=== PATIENT | female | born 1955 | race Caucasian/White ===

== ENCOUNTER 2021-05-11 20:54 | Inpatient (IN) ==
[2021-05-11 22:06] LABS: Hematocrit 39 % (35-47); Hemoglobin 13.5 g/dL (12.0-16.0); Mean Corpuscular HGB Conc 34 g/dL (31-36); Mean Corpuscular Hemoglobin 32 pg (27-31); Mean Corpuscular Volume 92 fL (80-97); Red Blood Count 4.27 10^6 /uL (3.70-4.87); Red Cell Distribution Width 14 % (10-15); White Blood Count 20.2 10^3/uL (3.5-10.8)
[2021-05-11 22:14] LABS: ALT 29 U/L (7-52); AST 25 U/L (13-39); Albumin 4.3 g/dL (3.2-5.2); Albumin/Globulin Ratio 1.2 (1-3); Alkaline Phosphatase 164 U/L (35-149); Anion Gap 10 mmol/L (2-11); Blood Urea Nitrogen 15 mg/dL (6-24); CO2 Carbon Dioxide 25 mmol/L (22-32); Calcium 9.3 mg/dL (8.6-10.3); Chloride 105 mmol/L (101-111); Globulin 3.7 g/dL (2-4); Glucose 137 mg/dL (70-100); Magnesium 2.1 mg/dL (1.9-2.7); Potassium 3.4 mmol/L (3.5-5.0); Sodium 140 mmol/L (135-145); eGFR CKD-EPI 76.9 (>60)
[2021-05-11 22:15] LABS: Urine Appearance Clear; Urine Blood Negative (Negative); Urine Color Yellow; Urine Ketones Negative (Negative); Urine Nitrite Negative (Negative); Urine Protein 1+(30 mg/dL) (Negative); Urine Urobilinogen Negative (Negative); Urine pH 5 (5-9)
[2021-05-11 22:16] LABS: Urine Bilirubin Negative (Negative); Urine Glucose Negative (Negative)
[2021-05-11 22:17] LABS: Urine Bacteria 1+ (Absent); Urine Red Blood Cell Absent (Absent); Urine Squamous Epithelial Cell Present (Absent); Urine White Blood Cell Trace(0-5/hpf) (Absent)
[2021-05-11 22:22] LABS: Rapid COVID-19 Molecular Undetected (Undetected)
[2021-05-11 22:32] LABS: Troponin I 0.04 ng/mL (<0.03)
[2021-05-11 22:46] LABS: ABS Basophils 0.2 10^3/ul (0-0.2); ABS Eosinophils 0.8 10^3/ul (0-0.6); ABS Lymphocytes 5.1 10^3/ul (1.0-4.8); ABS Monocytes 1.2 10^3/ul (0-0.8); Alcohol, S < 13 mg/dL (<13); Eosinophil % 3.8 %; Lymphocyte % 25.1 %; Mean Platelet Volume 9.1 fL (7.4-10.4); Platelet Count 374 10^3/uL (150-450)
[2021-05-11 23:08] LABS: C Reactive Protein 18.62 mg/L (<8.01)
[2021-05-12 06:21] LABS: ABS Basophils 0.1 10^3/ul (0-0.2); ABS Eosinophils 0.8 10^3/ul (0-0.6); ABS Lymphocytes 4.4 10^3/ul (1.0-4.8); ABS Monocytes 1.1 10^3/ul (0-0.8); ABS Neutrophils 10.3 10^3/ul (1.5-7.7); Hematocrit 40 % (35-47); Hemoglobin 13.8 g/dL (12.0-16.0); Lymphocyte % 26.5 %; Mean Corpuscular HGB Conc 35 g/dL (31-36); Mean Corpuscular Hemoglobin 32 pg (27-31); Mean Corpuscular Volume 91 fL (80-97); Mean Platelet Volume 8.3 fL (7.4-10.4); Platelet Count 390 10^3/uL (150-450); Red Blood Count 4.34 10^6 /uL (3.70-4.87); Red Cell Distribution Width 15 % (10-15); White Blood Count 16.7 10^3/uL (3.5-10.8)
[2021-05-12 06:37] LABS: Anion Gap 8 mmol/L (2-11); Blood Urea Nitrogen 13 mg/dL (6-24); CO2 Carbon Dioxide 27 mmol/L (22-32); Calcium 9.3 mg/dL (8.6-10.3); Chloride 105 mmol/L (101-111); Glucose 107 mg/dL (70-100); Potassium 3.4 mmol/L (3.5-5.0); Sodium 140 mmol/L (135-145); eGFR CKD-EPI 97.8 (>60)
[2021-05-12 06:48] LABS: Troponin I 0.08 ng/mL (<0.03)
[2021-05-12] MEDS ORDERED: Potassium Chloride LIQUID 20 MEQ/15 ML LIQUID PO ONE (06:58)
[2021-05-12 10:43] LABS: Uric Acid 2.9 mg/dL (2.3-6.6)
[2021-05-12 10:44] LABS: Troponin I 0.07 ng/mL (<0.03)
[2021-05-12] MEDS ORDERED: Iodixanol (CONTRAST) 320 MG/ML 100 ML SDV IV ONE (10:44)
[2021-05-12] MEDS: Enoxaparin 40 MG/0.4 ML SYR SUBCUT SCH (11:55)
[2021-05-13 05:50] LABS: ABS Basophils 0.1 10^3/ul (0-0.2); ABS Eosinophils 1.1 10^3/ul (0-0.6); ABS Lymphocytes 4.1 10^3/ul (1.0-4.8); ABS Monocytes 0.9 10^3/ul (0-0.8); ABS Neutrophils 7.4 10^3/ul (1.5-7.7); Eosinophil % 7.8 %; Hematocrit 39 % (35-47); Hemoglobin 13.4 g/dL (12.0-16.0); Lymphocyte % 30.6 %; Mean Corpuscular HGB Conc 35 g/dL (31-36); Mean Corpuscular Hemoglobin 32 pg (27-31); Mean Corpuscular Volume 93 fL (80-97); Platelet Count 377 10^3/uL (150-450); Red Blood Count 4.16 10^6 /uL (3.70-4.87); Red Cell Distribution Width 15 % (10-15); White Blood Count 13.5 10^3/uL (3.5-10.8)
[2021-05-13 06:05] LABS: Calcium 9.2 mg/dL (8.6-10.3); Potassium 3.9 mmol/L (3.5-5.0); eGFR CKD-EPI 97.1 (>60)
[2021-05-13] MEDS: Enoxaparin 40 MG/0.4 ML SYR SUBCUT SCH (09:14)
[2021-05-13] MEDS ORDERED: Perflutren Lipid Microsphere 3 ML VIAL ONE (12:49)
[2021-05-14] MEDS: Enoxaparin 40 MG/0.4 ML SYR SUBCUT SCH (08:48)
[2021-05-15 06:53] LABS: ABS Basophils 0.1 10^3/ul (0-0.2); ABS Eosinophils 0.9 10^3/ul (0-0.6); ABS Lymphocytes 4.1 10^3/ul (1.0-4.8); ABS Monocytes 0.8 10^3/ul (0-0.8); ABS Neutrophils 9.3 10^3/ul (1.5-7.7); Hematocrit 40 % (35-47); Hemoglobin 13.8 g/dL (12.0-16.0); Mean Corpuscular HGB Conc 34 g/dL (31-36); Mean Corpuscular Hemoglobin 32 pg (27-31); Mean Corpuscular Volume 93 fL (80-97); Mean Platelet Volume 8.3 fL (7.4-10.4); Platelet Count 397 10^3/uL (150-450); Red Blood Count 4.35 10^6 /uL (3.70-4.87); Red Cell Distribution Width 15 % (10-15); White Blood Count 15.3 10^3/uL (3.5-10.8)
[2021-05-15 07:10] LABS: Calcium 9.7 mg/dL (8.6-10.3); Magnesium 2.1 mg/dL (1.9-2.7); Potassium 4.1 mmol/L (3.5-5.0); eGFR CKD-EPI 100.4 (>60)
[2021-05-15] MEDS: Enoxaparin 40 MG/0.4 ML SYR SUBCUT SCH (08:42)
[2021-05-16] MEDS: Enoxaparin 40 MG/0.4 ML SYR SUBCUT SCH (09:20)
[2021-05-17] MEDS: Enoxaparin 40 MG/0.4 ML SYR SUBCUT SCH (09:15)
[2021-05-17 15:58] VITALS: BP 158/86
== END 2021-05-17 15:33 | disposition swing bed (61) | DRG 342 ==
LOC: ED 20:54 → EDHOLD 05-12 01:57 → INTOOBSV 05-12 01:57 → SUATTDRO 05-12 01:57 → SSU 05-12 04:36
PROVIDERS: ADMIT Internal Medicine; ATTEND Internal Medicine

== ENCOUNTER 2021-05-17 14:41 | Inpatient (IN) ==
[2021-05-18] MEDS: Enoxaparin 40 MG/0.4 ML SYR SUBCUT SCH (09:18)
[2021-05-19] MEDS: Enoxaparin 40 MG/0.4 ML SYR SUBCUT SCH (09:23)
[2021-05-19] MEDS ORDERED: COVID-19 VACCINE, MRNA(PFIZER)/PF 30 MCG/0.3 ML IM ONE (16:00)
[2021-05-19] MEDS ORDERED: COVID-19 VACCINE, TRIS(PFIZER)/PF 30 MCG/0.3 ML IM ONE (17:00)
[2021-05-20 08:41] VITALS: BP 144/86
[2021-05-20] MEDS: Enoxaparin 40 MG/0.4 ML SYR SUBCUT SCH (08:51)
== END 2021-05-20 13:10 | disposition home or self-care (01) | DRG 862 ==
LOC: SUATTDRO 17:03 → SSU 17:03
PROVIDERS: ADMIT Internal Medicine; ATTEND Hospitalist

== ENCOUNTER 2023-08-10 23:43 | Inpatient (IN) ==
[2023-08-11 01:18] LABS: PCO2 Arterial 32 mmHg (35-45); PO2 Arterial 121 mmHg (80-100)
[2023-08-11] MEDS: Albuterol/Ipratropium NEB.SOL (2.5/0.5 MG) 3 ML NEB.SOLN INH ONE (01:21)
[2023-08-11 01:41] LABS: Hematocrit 37.5 % (35-45); Hemoglobin 12.6 g/dL (11.5-14.3); Mean Corpuscular Hgb Conc 33.7 g/dL (31-36); Mean Corpuscular Volume 92.1 fL (80-97); Red Blood Count 4.08 10^6/uL (3.63-4.92); Red Cell Distribution Width 14.9 % (12-17)
[2023-08-11 01:52] LABS: INR 1.12 (0.83-1.13)
[2023-08-11 01:58] LABS: ABS Basophils 0.1 10^3/uL (0.0-0.1); ABS Eosinophils 0.7 10^3/uL (0.0-0.5); ABS Lymphocytes 3.3 10^3/uL (1.0-4.8); ABS Neutrophils 9.9 10^3/uL (1.5-7.6); ABS Nucleated RBC 0.03 10^3/ul; Eosinophil % 4.6 %; Lymphocyte % 22.2 %; Mean Platelet Volume 8.8 fL (7.5-11.2); Nucleated Red Blood Cells % 0.2 %/100WBC (0.0-0.8); Platelet Count 313 10^3/uL (150-450)
[2023-08-11 02:06] LABS: High Sens Troponin Baseline 810 pg/mL (<15)
[2023-08-11 02:28] LABS: ALT 38 U/L (7-52); Albumin 4.4 g/dL (3.2-5.2); Albumin/Globulin Ratio 1.4 (1-3); Alkaline Phosphatase 125 U/L (35-149); Anion Gap 16 mmol/L (2-16); Blood Urea Nitrogen 22 mg/dL (6-24); C Reactive Protein 26.08 mg/L (<8.01); CO2 Carbon Dioxide 16 mmol/L (22-32); Calcium 9.1 mg/dL (8.6-10.3); Chloride 103 mmol/L (101-111); Creatinine, Serum 0.73 mg/dL (0.51-0.95); Globulin 3.2 g/dL (2-4); Glucose 115 mg/dL (70-100); Sodium 135 mmol/L (135-145); Total Bilirubin 0.6 mg/dL (0.2-1.0); Total Protein 7.6 g/dL (6.4-8.9); eGFR CKD-EPI 91.2 (>60)
[2023-08-11] MEDS: Iohexol 350 (CONTRAST) 500 ML MDV IV ONE (03:08)
[2023-08-11 03:23] LABS: Potassium 3.9 mmol/L (3.5-5.0)
[2023-08-11 03:43] LABS: Potassium Redraw 3.7 mmol/L (3.5-5.0)
[2023-08-11] MEDS: Heparin 5000 UNITS/ML 1 mL VIAL IV SCH (03:53)
[2023-08-11] MEDS: Heparin DRIP 25,000 UNITS BAG 25,000 UNITS/250 ML BAG IV SCH (03:54)
[2023-08-11] MEDS ORDERED: Albuterol/Ipratropium NEB.SOL (2.5/0.5 MG) 3 ML NEB.SOLN INH PRN (04:07)
[2023-08-11 05:09] LABS: High Sensitivity Troponin 3 Hr 1007 pg/mL (<15)
[2023-08-11 06:15] LABS: ABS Basophils 0.1 10^3/uL (0.0-0.1); ABS Eosinophils 0.2 10^3/uL (0.0-0.5); ABS Lymphocytes 2.8 10^3/uL (1.0-4.8); ABS Monocytes 0.5 10^3/uL (0.0-0.9); ABS Neutrophils 9.3 10^3/uL (1.5-7.6); Eosinophil % 1.7 %; Hematocrit 35.2 % (35-45); Hemoglobin 11.9 g/dL (11.5-14.3); Lymphocyte % 21.8 %; Mean Corpuscular Hgb Conc 33.9 g/dL (31-36); Mean Corpuscular Volume 91.3 fL (80-97); Mean Platelet Volume 8.7 fL (7.5-11.2); Platelet Count 317 10^3/uL (150-450); Red Blood Count 3.85 10^6/uL (3.63-4.92); Red Cell Distribution Width 14.5 % (12-17); White Blood Count 12.9 10^3/uL (3.8-11.8)
[2023-08-11 07:00] LABS: Calcium 8.4 mg/dL (8.6-10.3); Creatinine, Serum 0.62 mg/dL (0.51-0.95); eGFR CKD-EPI 98.8 (>60)
[2023-08-11] MEDS: Furosemide 40 mg/4 ml IV VIAL IV ONE (07:33)
[2023-08-11 08:42] LABS: HDL Cholesterol 46.6 mg/dL
[2023-08-11] MEDS ORDERED: Sulfur Hexaflouride MICROSPHR 25 MG VIAL ONE ×2 (08:47→15:58)
[2023-08-11 08:57] LABS: T4, Total 8.12 mcg/dL (6.09-12.23)
[2023-08-11 08:59] LABS: TSH Ultra Thyroid Stim Horm 1.55 mcIU/mL (0.34-5.60)
[2023-08-11 09:00] LABS: Free T3 2.96 pg/mL (2.5-3.9)
[2023-08-11 09:01] LABS: Free T4 0.86 ng/dL (0.61-1.12)
[2023-08-11 09:05] LABS: Urine Appearance Clear; Urine Bacteria Absent /HPF (Absent); Urine Bilirubin Negative (Negative); Urine Blood Negative (Negative); Urine Color Yellow; Urine Glucose Negative (Negative); Urine Ketones Negative (Negative); Urine Nitrite Negative (Negative); Urine Protein 1+ (>=30 mg/dL) (Negative); Urine Red Blood Cell 1+(3-5/hpf) /HPF (0-Trace); Urine Specific Gravity >1.050 (1.002-1.030); Urine Squamous Epithelial Cell Present /HPF (Absent); Urine Urobilinogen 1+ (Negative); Urine White Blood Cell Trace(0-5/hpf) /HPF (0-Trace); Urine pH 5.5 (5.0-8.0)
[2023-08-11 09:06] LABS: Ferritin 176.1 ng/mL (11-307)
[2023-08-11 12:55] LABS: High Sensitivity Troponin 1 Hr 1198 pg/mL (<15)
[2023-08-11] MEDS: Furosemide 40 mg/4 ml IV VIAL IV SLOW PU ONE (14:35)
[2023-08-11] MEDS: Furosemide 40 mg/4 ml IV VIAL IV SLOW PU SCH (17:45)
[2023-08-11 17:58] LABS: Anion Gap 13 mmol/L (2-16); Blood Urea Nitrogen 23 mg/dL (6-24); CO2 Carbon Dioxide 24 mmol/L (22-32); Chloride 101 mmol/L (101-111); Creatinine, Serum 0.83 mg/dL (0.51-0.95); Glucose 125 mg/dL (70-100); Sodium 138 mmol/L (135-145); eGFR CKD-EPI 78.2 (>60)
[2023-08-12 05:42] LABS: ABS Basophils 0.1 10^3/uL (0.0-0.1); ABS Eosinophils 0.7 10^3/uL (0.0-0.5); ABS Lymphocytes 4.4 10^3/uL (1.0-4.8); ABS Monocytes 1.2 10^3/uL (0.0-0.9); ABS Neutrophils 8.1 10^3/uL (1.5-7.6); Eosinophil % 4.8 %; Hematocrit 33.2 % (35-45); Hemoglobin 11.2 g/dL (11.5-14.3); Lymphocyte % 30.7 %; Mean Corpuscular Hemoglobin 30.5 pg (27-33); Mean Corpuscular Hgb Conc 33.6 g/dL (31-36); Mean Corpuscular Volume 90.8 fL (80-97); Mean Platelet Volume 8.9 fL (7.5-11.2); Platelet Count 277 10^3/uL (150-450); Red Blood Count 3.66 10^6/uL (3.63-4.92); Red Cell Distribution Width 14.5 % (12-17); White Blood Count 14.5 10^3/uL (3.8-11.8)
[2023-08-12 06:18] LABS: Calcium 8.6 mg/dL (8.6-10.3); Creatinine, Serum 0.81 mg/dL (0.51-0.95); Magnesium 2.2 mg/dL (1.9-2.7); Potassium 3.6 mmol/L (3.5-5.0); eGFR CKD-EPI 80.5 (>60)
[2023-08-12] MEDS ORDERED: NS 0.9% 1000 ml BAG 1,000 ML IV SCH (07:00)
[2023-08-12] MEDS: Potassium Chlor 20 meq TAB.ER PO ONE (08:19)
[2023-08-12] MEDS: Iron Sucrose 200 MG in NS 0.9% 100 ml BAG 100 ML IVPB SCH (13:23)
[2023-08-12 14:59] LABS: High Sensitivity Troponin 1 Hr 883 pg/mL (<15)
[2023-08-13 08:19] LABS: ABS Basophils 0.1 10^3/uL (0.0-0.1); ABS Eosinophils 1.1 10^3/uL (0.0-0.5); ABS Lymphocytes 3.5 10^3/uL (1.0-4.8); ABS Monocytes 1.3 10^3/uL (0.0-0.9); ABS Neutrophils 7.3 10^3/uL (1.5-7.6); ABS Nucleated RBC 0.01 10^3/ul; Eosinophil % 8.1 %; Hematocrit 33.8 % (35-45); Hemoglobin 11.4 g/dL (11.5-14.3); Lymphocyte % 26.2 %; Mean Corpuscular Hemoglobin 30.9 pg (27-33); Mean Corpuscular Hgb Conc 33.7 g/dL (31-36); Mean Corpuscular Volume 91.8 fL (80-97); Mean Platelet Volume 9.1 fL (7.5-11.2); Nucleated Red Blood Cells % 0.1 %/100WBC (0.0-0.8); Platelet Count 289 10^3/uL (150-450); Red Blood Count 3.68 10^6/uL (3.63-4.92); Red Cell Distribution Width 14.6 % (12-17); White Blood Count 13.3 10^3/uL (3.8-11.8)
[2023-08-13 08:40] LABS: Calcium 8.7 mg/dL (8.6-10.3); Creatinine, Serum 0.73 mg/dL (0.51-0.95); Magnesium 2.1 mg/dL (1.9-2.7); Potassium 3.5 mmol/L (3.5-5.0); eGFR CKD-EPI 91.2 (>60)
[2023-08-13] MEDS: Metoprolol Tartrate 5 mg VIAL 5 ml VIAL (1 mg/ml) IV ONE (09:17)
[2023-08-13] MEDS: Potassium Chlor 20 meq TAB.ER PO ONE (09:19)
[2023-08-13] MEDS ORDERED: .Amiodarone 24HR ONLY IV Protocol Order Note IV ONE (10:21)
[2023-08-13] MEDS: Amiodarone 150 mg IVPREMIX 150 MG/100 ML BAG IV ONE (11:05)
[2023-08-13] MEDS: Amiodarone 360 MG IVPREMIX 360 MG/200 ML BAG IV SCH ×2 (11:28→17:30)
[2023-08-13] MEDS ORDERED: fentaNYL 100 mcg/2 ml 50 MCG/ML VIAL ONE (13:10)
[2023-08-13] MEDS ORDERED: Midazolam 5 mg/5 ml VIAL 1 mg/ml 5 ml VIAL (5 mg) ONE (13:10)
[2023-08-13] MEDS ORDERED: VERAPAMIL 2.5 MG/ML 2 ML VIAL ** 5 mg/2 ml ONE (13:39)
[2023-08-13] MEDS ORDERED: Heparin 1,000 UNIT/ML 10 ml (10,000 UNITS) CATHLAB/DIALYSIS ONE (13:39)
[2023-08-13] MEDS ORDERED: Lidocaine 1% MPF 5 ML VIAL ONE (13:40)
[2023-08-13] MEDS ORDERED: Iohexol 350 (CONTRAST) 200 ML MDV IV ONE (13:40)
[2023-08-13] MEDS ORDERED: Heparin 2 UNITS/ML 1000 mls 2,000 ML IV ONE (13:40)
[2023-08-13] MEDS ORDERED: nitroGLYCERIN DRIP 25,000 MCG/250 ML BTL ONE (13:40)
[2023-08-13 18:13] VITALS: BP 102/73
== END 2023-08-13 18:45 | disposition short-term general hospital (02) | DRG 280 ==
LOC: ED 23:43 → EDHOLD 08-11 03:59 → ICU 08-11 07:50
PROVIDERS: ADMIT Hospitalist; ATTEND Internal Medicine Critical Care Medicine